=== PATIENT | male | born 1995 | race Caucasian/White ===

== ENCOUNTER 2024-09-16 20:36 | Emergency (ER) | payer SELFPAY | END 2024-09-16 21:10 | disposition left against medical advice (07) | LOC: ER 20:38 | DX: Z00.00 Encounter for general adult medical examination without abnormal findings (principal); Z53.21 Procedure and treatment not carried out due to patient leaving prior to being seen by health care provider; W54.0XXA Bitten by dog, initial encounter; Y93.89 Activity, other specified; Y92.89 Other specified places as the place of occurrence of the external cause; Y99.8 Other external cause status ==